=== PATIENT | male | born 1970 | race Caucasian/White ===

== ENCOUNTER → 2021-05-20 | Outpatient (CLI) | payer OTHER ==
[~2021-05-20] MED LIST: ABILIFY 5 MG TAB5 MG PO; EFFEXOR XR150 MG PO; EFFEXOR XR37.5 MG PO; IBUPROFEN800 MG PO; IMDUR ER TAB 3030 MG PO; LOPRESSOR 25 MG25 MG PO; LOVENOX SY40 MG/0.4 SQ
== END ==
LOC: KOH-I 09:18
DX: M48.061 Spinal stenosis, lumbar region without neurogenic claudication (principal); M47.816 Spondylosis without myelopathy or radiculopathy, lumbar region
CPT/HCPCS: 72100